=== PATIENT | female | born 1970 | race Caucasian/White ===

== ENCOUNTER 2018-11-11 13:00 | Emergency (ER) | payer BC, MEDICAID ==
[~2018-11-11] VITALS: Ht 170.2 cm; Wt 100.0 kg
[~2018-11-11 13:00] MED LIST: NO HOME MEDS
[2018-11-11 15:25] VITALS: BP 153/103
== END 2018-11-11 15:26 | disposition home or self-care (01) ==
LOC: ER 13:00
DX: M79.671 Pain in right foot (principal); I10 Essential (primary) hypertension
CPT/HCPCS: 93926; 93971; 99284

== ENCOUNTER 2022-07-01 18:02 | Emergency (ER) | payer BC, MEDICAID ==
[~2022-07-01] VITALS: Ht 170.2 cm; Wt 109.1 kg
[2022-07-01 18:10] VITALS: BP 199/76
== END 2022-07-02 01:38 | disposition left against medical advice (07) ==
LOC: ER 18:03
DX: J11.1 Influenza due to unidentified influenza virus with other respiratory manifestations (principal); Z53.21 Procedure and treatment not carried out due to patient leaving prior to being seen by health care provider

== ENCOUNTER 2024-04-13 11:55 | Emergency (ER) | payer MEDICAID ==
[~2024-04-13] VITALS: Ht 170.2 cm; Wt 123.6 kg
[2024-04-13 12:03] VITALS: BP 156/91; PULSE 88; RESP 16; TEMP 97.8; O2SAT 98
== END 2024-04-13 14:15 | disposition home or self-care (01) ==
LOC: ER 11:56
DX: S70.12XA Contusion of left thigh, initial encounter (principal); I10 Essential (primary) hypertension; Z87.19 Personal history of other diseases of the digestive system; W19.XXXA Unspecified fall, initial encounter; Y93.89 Activity, other specified; Y92.89 Other specified places as the place of occurrence of the external cause; Y99.8 Other external cause status
CPT/HCPCS: 99284

== ENCOUNTER 2025-05-11 02:28 | Emergency (ER) | payer MEDICAID ==
[~2025-05-11] VITALS: Ht 170.2 cm; Wt 121.6 kg
[2025-05-11] MEDS: gentamicin 0.3% ophthalmic drops 5ML EACHEYE ONE (02:56)
--- NOTE | 2025-05-11 02:57 | Physician Documentation ---
History of Present Illness ~ Chief Complaint: Eye Pain Stated Complaint: EYE PAIN Time Seen by MD: 02:42 Primary Medical Doctor: [facility] HPI 55 year old female accidentally applied hydrogen peroxide to her eyes from her contact lens solution. Reports intense pain and burning from the incident and now discharge. Medication Reconciliation Allergies: Coded Allergies: No Known Allergies (Unverified , 04/13/24) Miscellaneous Medications Home Med List (No Home Medications), (Reported) Past Medical History Past Medical History: Hypertension, Hemorrhoids Past Surgical History: Alcohol Use: Rarely Drug Use: none Lives In: Home Review of Systems All Other Systems at this time: Reviewed and Negative Physical Exam Vital Signs: RN Vital Signs have been reviewed: Yes, Temperature: 97.7, Heart Rate: 80, Respiratory Rate: 16, BP: 185/105, Pulse Oximetry: 98, Weight: 121.590 Oxygen Flow Rate: 0 Physical Exam General: Alert, no apparent distress. HEENT: bilateral conjunctival injection and serous discharge Respiratory: Lungs clear, no respiratory distress. Extremities: Normal range of motion, no deformity. Neurologic: Oriented x4. Psychiatric: Normal mood and affect. Skin: Normal color, warm and dry. No edema, no ecchymosis. Progress Results/Orders Results/Orders Completed Orders - MARCUS TAYLOR MD Gentamicin Ophth Drops (Gentamicin Ophth (05/11/25 02:45) Vital Signs 05/11/25 02:35 Temp 97.7 Pulse 80 Resp 16 B/P (MAP) 185/105 Pulse Ox 98 O2 Flow Rate 0 Medical Decision Making Additional information obtaine: N/A Findings 55 year old female with chemical conjunctivitis. Rx ABx drops, reassurance, return precautions. Ear Diff. Dx: Considerations: Include: Other Eye Diff. Dx: Considerations: Include: Other Nose Diff. Dx: Considerations: Include: Other Tooth Diff. Dx: Considerations: Include: Other Throat Diff Dx: Considerations: Include: Other Additional Comment Ddx = chemical conjunctivitis, allergic conjunctivitis, bacterial conjunctivitis Departure Disposition: 01 HOME / SELF CARE / HOMELESS Impression: Primary Impression: Chemical conjunctivitis of both eyes Discharge Instructions: Chemical Conjunctivitis, Adult Referrals: NO PRIMARY CARE PROVIDER (PCP) Education Educated: Patient Educated regarding: diagnosis, treatment, prognosis, need for follow up Signature Scribe Signature: . Attestation: . MARCUS TAYLOR MD May 11, 2025 02:57
[2025-05-11] MEDS: HYDROcodone/acetaminophen 5mg/325mg tablet PO ONE (03:31)
[2025-05-11 03:50] VITALS: BP 165/89; PULSE 89; RESP 20; TEMP 98.6; O2SAT 99
== END 2025-05-11 03:51 | disposition home or self-care (01) ==
LOC: ER 02:29
DX: H10.213 Acute toxic conjunctivitis, bilateral (principal); I10 Essential (primary) hypertension; Z87.19 Personal history of other diseases of the digestive system
CPT/HCPCS: 99283